=== PATIENT | male | born 1985 | race Caucasian/White ===

== ENCOUNTER 2021-08-14 23:34 | Inpatient (IN) | payer SELFPAY ==
[~2021-08-14] VITALS: Ht 172.7 cm; Wt 58.0 kg
[~2021-08-14 23:34] MED LIST: NAPROSYN500 MG OR
--- NOTE | 2021-08-14 23:35 | NUR ---
PT TO ROOM VIA EM STRETCHER FOR BEDSIDE TRIAGE
[2021-08-15 00:25] LABS: HEMATOCRIT 45.3 % (39.0-50.0); HEMOGLOBIN 15.5 g/dl (14.0-18.0); IMMATURE GRANULOCYTES 0.1 % (0.0-5.0); MEAN CELL VOLUME 87.5 fL CALC (80.0-100.0); MEAN CORPUSCULAR HGB 29.9 pG CALC (26.0-32.0); MEAN CORPUSCULAR HGB CONC 34.2 g/dL CAL (32.0-36.0); NEUT# 8.21 thou/uL (1.82-7.42); RED BLOOD COUNT 5.18 mill/uL (4.70-6.10); RED CELL DISTRI WIDTH 12.6 % (11.5-15.5)
[2021-08-15 00:31] LABS: ALBUMIN 4.8 g/dL (3.2-5.0); ALKALINE PHOSPHATASE 79 u/l (38-126); AMYLASE 88 u/l (30-110); ANION GAP 15 (6-22 (CALC)); BILIRUBIN, TOTAL 0.6 mg/dL (0.0-1.4); BUN 13 mg/dL (9-20); BUN/CREATININE RATIO 16 (12-20 (CALC)); CARBON DIOXIDE 29 mmol/l (22-30); CHLORIDE 98 mmol/l (95-108); CREATININE 0.8 mg/dL (0.7-1.3); GFR > 60 ML/MIN (>=60 (CALC)); GFR FOR AFR.AMER. > 60 ML/MIN (>=60 (CALC)); LIPASE 22 u/l (23-300); POTASSIUM 3.9 mmol/l (3.5-5.1); SGOT/AST 24 u/l (17-59); SODIUM 139 mmol/l (137-146)
[2021-08-15 00:42] LABS: MYOGLOBIN 21 ng/mL (0 - 121)
--- NOTE | 2021-08-15 02:30 | NUR ---
W/P/D SKIN NO N/V PAIN IS RESDOLVING 4 ON SCALE AT PRESENT
--- NOTE | 2021-08-15 03:42 | NUR ---
PAIN HAS RESOLVED SLEEPING AT INTERVALS NO N/V W/P/D SKIN
--- NOTE | 2021-08-15 04:20 | NUR ---
16F NG TO GASTRUM WITH 500CC BROWN WATERY ASPIRANT TO LIS.PT TOLERATED
--- NOTE | 2021-08-15 04:35 | NUR ---
PT TRANSPORTED TO OR BY OR STAFF IN STABLE CONDITION
[2021-08-15 05:45] LABS: URINE BILIRUBIN - DIPSTICK NEGATIVE (NEGATIVE); URINE BLOOD DIPSTICK NEGATIVE (NEGATIVE); URINE COLOR YELLOW; URINE GLUCOSE - DIPSTICK NEGATIVE (NEGATIVE); URINE KETONE NEGATIVE (NEGATIVE); URINE LEUK ESTERASE NEGATIVE (NEGATIVE); URINE PROTEIN - DIPSTICK NEGATIVE (NEG-TRACE); URINE UROBILINOGEN - DIPSTICK 0.2 E.U./dL (0.2)
[2021-08-15 05:47] LABS: URINE NITRITE - DIPSTICK NEGATIVE (Negative)
--- NOTE | 2021-08-15 06:55 | NUR ---
REPORT RECEIVED FROM NERY BLANCO
--- NOTE | 2021-08-15 07:20 | NUR ---
PT ARRIVED TO MED/SURG ROOM 281 IN STABLE CONDITION VIA HOSPITAL BED ACCOMPANIED BY X2 OR STAFF MEMBERS;BEDSIDE REPORT RECEIVED FROM TESS PATTERSON;PT A&O X3 BUT DROWSY, ORIENTED TO ROOM AND CALL LIGHT SYSTEM;PT POST OP EXPLORATIVE LAPAROTOMY 08/15/21;PT DENIES ANY CURRENT PAIN OR DISCOMFORTS,PAIN SCALE AND REPORTING EDUCATED;RESPIRATIONS EVEN AND UNLABORED ON RA,CLEAR LUNG SOUNDS;NGT NOTED TO BE PATENT AND CLAMPED. NO ORDERS FOR SUCTION AT THIS TIME;ABDOMEN SOFT ON PALPATION AND HYPOACTIVE IN 4 QUADRANTS,LAST BM 08/14/21;STRONG PEDAL PULSES,SCD'S IN PLACE;EMS #20G TO RFA INFUSING NS WITH EASE PER ORDER,SITE APPEARS HEALTHY;PT EDUCATED ON NPO DIET WITH ICE CHIPS AND VERBALIZES UNDERSTANDING;PT DENIES ANY ADDITIONAL NEEDS AT THIS TIME AND IS ENCOURAGED TO CALL FOR ASSISTANCE IF NEEDED;FALL PRECAUTIONS IN PLACE WITH BED IN THE LOWEST POSITION AND CALL LIGHT IN REACH;WILL CONTINUE TO MONITOR
[2021-08-15 07:30] VITALS: BP 143/88
--- NOTE | 2021-08-15 08:55 | NUR ---
PT APPEARS TO BE SLEEPING IN SUPINE POSITION;NO S/S OF DISTRESS NOTED;RESPIRATIONS EVEN AND UNLABORED ON RA;IV SITE PATENT AND ABX STARTED AT THIS TIME;CALL LIGHT IN REACH;WILL CONTINUE TO MONITOR
[2021-08-15 10:00] VITALS: BP 126/78
--- NOTE | 2021-08-15 10:35 | NUR ---
VISITOR AT BEDSIDE
--- NOTE | 2021-08-15 11:25 | NUR ---
PT RESTING IN SUPINE POSITION;PT DENIES ANY CURRENT PAIN OR DISCOMFORTS;IV SITE PATENT INFUSING WITH EASE PER ORDER;ABDOMINAL DRESSING AND BINDER INTACT;MÉNDEZ CATHETER DRAINING TO GRAVITY WITH EASE;PT ENCOURAGED TO CALL FOR ASSISTANCE IF NEEDED;FALL PRECAUTIONS IN PLACE WITH BED IN THE LOWEST POSITION AND CALL LIGHT IN REACH;WILL CONTINUE TO MONITOR
--- NOTE | 2021-08-15 15:30 | NUR ---
PT RESTING IN SEMI FOWLERS POSITION;RESPIRATIONS EVEN AND UNLABORED ON RA;PT REPORTS MINIMAL ABDOMINAL PAIN 2/10 ON THE PAIN SCALE;IV SITE PATENT INFUSING WITH EASE;NGT IN PLACE;ABDOMINAL DRESSING AND BINDER CDI;MÉNDEZ CATHETER DRAINING TO GRAVITY;ICE CHIPS PROVIDED PER REQUEST;PT ASSISTED INTO RECLINER AT THIS TIME AND TOLERATED WELL;PT DENIES ANY ADDITIONAL NEEDS AND IS ENCOURAGED TO CALL FOR ASSISTANCE IF NEEDED;CALL LIGHT IN REACH;WILL CONTINUE TO MONITOR
[2021-08-15 16:09] VITALS: BP 123/77
--- NOTE | 2021-08-15 16:25 | NUR ---
PT REPORTS ABDOMINAL PAIN RATING 5/10 ON THE PAIN SCALE AND NAUSEA, PT MEDICATED WITH PRN DILAUDID 0.5MG SLOW IVP AND ZOFRAN 4MG IVP;WILL CONTINUE TO MONITOR FOR EFFECTIVESS
--- NOTE | 2021-08-15 19:00 | NUR ---
RECEIVED REPORT FROM ED NURSE SOFIA, PATIENT RESTING IN BED, WATCHING TV, BREATHING UNLABORED CALL LIGHT AT REACH.
--- NOTE | 2021-08-15 19:40 | NUR ---
PATIENT ALERT ORIENTED ABLE TO MAKE NEEDS KNOWN, BREATHING EVEN UNLABORED, CLEAR LUNG SOUNDS, EDUCATED ON THE USE OF SPIROMETER INSPIRATORY VOLUME 500CC, PAIN ON THROAT AND ABDOMINAL INCISION /10, WILL MEDICATE, DRESSING ON ABDOMEN CLEAN AND DRY BINDER IN PLACE, IV ON RFA G20 PATENT FLUSHES WELL D5 1/2 NS @ 125CC/HR, SCD IN PLACE, CALL LIGHT IN REACH.
[2021-08-15 20:09] VITALS: BP 128/75
--- NOTE | 2021-08-16 | NUR ---
DUE TORADOL GIVEN, PATIENT DENIES PAIN, BREATHING UNLBORED WILL CONTINUE TO MONITOR.
--- NOTE | 2021-08-16 03:00 | NUR ---
CALLED DR WELLS AND GAVE ORDERS TO REMOVE NGT.
--- NOTE | 2021-08-16 03:00 | NUR ---
PATIENT WAS C/O PAIN THROAT AND EAR PAIN STATED "I NEED THIS TUBE OUT RIGHT NOW, I CANT WAIT TILL MORNING, IM PRETTY SURE THAT I GOT EAR INFECTION BECAUSE OF THE TUBE" REFUSED PAIN MEDICATION STATED THAT HE WILL PULL THE TUBE OUT.
--- NOTE | 2021-08-16 03:05 | NUR ---
PATIENT CALLED AND SAID ALREADY PULLED THE TUBE OUT, SCANT AMOUNT OF BLOOD NOTED ON LEFT NARE, WASH CLOTH PROVIDED.
[2021-08-16 04:00] VITALS: BP 118/69
--- NOTE | 2021-08-16 05:54 | NUR ---
CATHETHER REMOVED, PATIENT TOLERATED.
[2021-08-16 06:40] LABS: ANION GAP 9 (6-22 (CALC)); BUN 13 mg/dL (9-20); BUN/CREATININE RATIO 18 (12-20 (CALC)); CARBON DIOXIDE 29 mmol/l (22-30); CHLORIDE 102 mmol/l (95-108); CREATININE 0.8 mg/dL (0.7-1.3); GFR > 60 ML/MIN (>=60 (CALC)); GFR FOR AFR.AMER. > 60 ML/MIN (>=60 (CALC)); POTASSIUM 3.9 mmol/l (3.5-5.1); SODIUM 136 mmol/l (137-146)
--- NOTE | 2021-08-16 06:55 | NUR ---
REPORT RECEIVED FROM TESS TATE
[2021-08-16 07:50] VITALS: BP 118/76
--- NOTE | 2021-08-16 08:30 | NUR ---
PT RESTING IN SEMI FOWLERS POSITION,A&O X3;VS OBTAINED AND ASSESSMENT COMPLETED;PT POD #1 EXPLORATORY LAP;PT DENIES ANY CURRENT PAIN OR DISCOMFORTS,PAIN SCALE AND REPORTING EDUCATED;RESPIRATIONS EVEN AND UNLABORED ON RA,CLEAR LUNG SOUNDS;I.S. AT BEDSIDE AND ENCOURAGED USE X10 PER HOUR;ABDOMEN SOFT ON PALPATION AND HYPOACTIVE IN ALL 4 QUADRANTS;ABDOMINAL DRESSING AND BINDER CDI;STRONG PEDAL PULSES,SCD'S IN PLACE;EMS #20G TO RFA INFUSING D5 1/2 NS @ 125ML/HR,SITE APPEARS HEALTHY;PT DENIES ANY ADDITIONAL NEEDS AND IS ENCOURAGED TO CALL FOR ASSISTANCE IF NEEDED;FALL PRECAUTIONS REAMIN IN PLACE WITH BED IN THE LOWEST POSITION AND CALL LIGHT IN REACH;WILL CONTINUE TO MONITOR
--- NOTE | 2021-08-16 10:09 | NUR ---
PT AMBULATING HALLWAY WITH VISITOR AND A STEADY GAIT.
--- NOTE | 2021-08-16 11:40 | NUR ---
PT RESTING IN SEMI FOWLERS POSITION;RESPIRATIONS EVEN AND UNLABORED ON RA;PT REPORTS ABDOMINAL PAIN RATING 2/10 ON THE PAIN SCALE AND IS MEDICATED WITH SCHEDULED TORADOL 15MG IVP;ABDOMINAL BINDER AND DRESSING CDI;IV SITE PATENT INFUSING WITH EASE;PT DENIES ANY ADDITIONAL NEEDS AND IS ENCOURAGED TO CALL FOR ASSISTANCE IF NEEDED;CALL LIGHT IN REACH;WILL CONTINUE TO MONITOR
--- NOTE | 2021-08-16 14:30 | NUR ---
PT RESTING IN SEMI FOWLERS POSITION;PT BATHED SELF AND NEW LINENS PROVIDED;PT AMBULATED THE HALLWAYS WITH A STEADY GAIT;#20G TO RAC REMOVED WITH CATHETER INTACT DUE TO EXPIRATION, NEW #22G STARTED TO LFA ON 1ST ATTEMPT BY THIS WRITTER AND PT TOLERATED WELL;PT MEDICATED WITH PRN DILAUDID 1MG SLOW IVP AND ZOFRAN 4MG IVP AT THIS TIME PER REQUEST;PT ENCOURAGED TO CALL FOR ASSISTANCE IF NEEDED;CALL LIGHT IN REACH;WILL CONTINUE TO MONITOR
[2021-08-16 15:50] VITALS: BP 124/76
--- NOTE | 2021-08-16 16:10 | NUR ---
PT APPEARS TO BE SLEEPING IN SEMI FOWLERS POSITION;RESPIRATIONS EVEN AND UNLABORED ON RA;NO S/S OF DISTRESS NOTED;IV SITE PATENT INFUSING D5 1/2 NS WITH EASE;ALL SAFETY PRECAUTIONS IN PLACE WITH BED IN THE LOWEST POSITION AND CALL LIGHT IN REACH;WILL CONTINUE TO MONITOR
[2021-08-16 19:00] VITALS: BP 142/86
--- NOTE | 2021-08-16 19:21 | NUR ---
PT MEDICATED WITH PRN DILAUDID 1MG SLOW IVP FOR ABDOMNIAL PAIN RATING 6/10 ON THE PAIN SCALE.
--- NOTE | 2021-08-16 20:05 | NUR ---
PATIENT ALERT AND ORIENTED. ABLE TO MAKE NEEDS KNOWN. ASSESSMENT COMPLETE. DRESSING TO ABDOMEN APPEARS CDI. ABDOMINAL BINDER IN PLACE. PAIN CONTROL EFFECTIVE FROM PRN MEDICATION GIVEN FROM PREVIOUS NURSE. CALL LIGHT AND BELONGINGS REMAIN IN REACH.
--- NOTE | 2021-08-17 00:48 | NUR ---
RESTING IN BED. ADNINISTERED SCHEDULED TORADOL. PAIN RATE OF A 4. NO SIGNS OF DISTRESS. VERY PLEASANT. EMPTIED URINAL. 400CC YELLOW URINE NOTED. CALL LIGHT AND BELONGINGS REMAIN IN REACH.
[2021-08-17 04:00] VITALS: BP 118/70
--- NOTE | 2021-08-17 04:38 | NUR ---
PATIENT LAYING IN BED, RESTING. NO SIGNS OF PAIN OR DISTRESS NOTED AT THIS TIME. CALL LIGHT AND BELONGINGS REMAIN IN REACH. WILL CONTINUE TO MONITOR PATIENT.
--- NOTE | 2021-08-17 07:00 | NUR ---
REPORT RECEIVED FROM GENEVARN
[2021-08-17 07:30] VITALS: BP 135/87
--- NOTE | 2021-08-17 09:00 | NUR ---
PT RESTING IN SEMI FOWLERS POSITION,A&OX3;VS OBTAINED AND ASSESSMENT COMPLETED;PT POD #2 EXPLORATORY LAP;PT REPORTS ABDOMINAL PAIN RATING 4/10 ON THE PAIN SCALE AND REQUESTS PAIN MEDICATION, PT MEDICATED WITH DILAUDID 1MG SLOW IVP AND ZOFRAN 4MG IVP;RESPIRATIONS EVEN AND UNLABORED ON RA,CLEAR LUNG SOUNDS;PT RE-EDUCATED ON I.S AND DEMONSTARTED UNDERSTANDING;ABDOMEN SOFT ON PALPATION AND HYPOACTIVE IN ALL 4 QUADRANTS;ABDOMINAL DRESSING CHANGED PER ORDER, 14 RICARDO NOTED HEALTHY AND WELL APPROX;ABDOMINAL BINDER NOTED;STRONG PEDAL PULSES;#22G TO LFA INFUSING D5 1/2 NS @ 125ML/HR,SITE APPEARS HEALTHY;PT DENIES ANY ADDITIONAL NEEDS AND IS ENCOURAGED TO CALL FOR ASSISTANCE IF NEEDED;FALL PRECAUTIONS IN PLACE WITH CALL LIGHT IN REACH;WILL CONTINUE TO MONITOR
--- NOTE | 2021-08-17 11:15 | NUR ---
PT RESTING IN SUPINE POSITION;RESPIRATIONS EVEN AND UNLABORED ON RA;PT REPORTS PAIN RATING 2/10 ON THE PAIN SCALE AND IS MEDICATED WITH SCHEDULED TORADOL;ABDOMINAL DRESSING AND BINDER CDI;IV FLUIDS INFUSING WITH EASE;PT DENIES ANY ADDITIONAL NEEDS AND IS ENCOURAGED TO CALL FOR ASSISTANCE IF NEEDED;CALL LIGHT IN REACH;WILL CONTINUE TO MONITOR
--- NOTE | 2021-08-17 14:00 | NUR ---
PT ENCOURAGED TO GET OUT OF BED AND AMBULATE THE HALLWAYS OR SIT IN THE RECLINER, PT DECLINES AT THIS TIME.CALL LIGHT IN REACH;WILL CONTINUE TO MONITOR
--- NOTE | 2021-08-17 14:25 | NUR ---
AT BEDSIDE DISCUSSING POC.
--- NOTE | 2021-08-17 15:40 | NUR ---
PT RESTING IN SEMI FOWLERS POSITION;RESPIRATIONS EVEN AND UNLABORED ON RA;PT DENIES ANY CURRENT PAIN OR NEEDS;IV SITE PATENT;ALL SAFETY PRECAUTIONS REMAIN IN PLACE WITH CALL LIGHT IN REACH;WILL CONTINUE TO MONITOR
[2021-08-17 16:22] VITALS: BP 130/74
[2021-08-17 19:00] VITALS: BP 143/79
--- NOTE | 2021-08-17 19:25 | NUR ---
PT MEDICATED WITH PRN DILAUDID FOR ABDOMINAL PAIN RATING 6/10 ON THE PAIN SCALE.
--- NOTE | 2021-08-17 20:20 | NUR ---
PT RESTING IN BED, NO SIGNS OF DISTRESS NOTED, RESP EVEN AND UNLABORED. PT STATES HIS PAIN LEVEL NOW A 2/10 AFTER DILAUDID, ABD BINDER IN PLACE, PT REMOVED AND MIDLINE DRESSING TO ABD CDI, REPLACED ABD BINDER. INCENTIVE SPIROMETER AT BEDSIDE, PT DEMONSTRATED ITS USE, 1000ML VOLUME. PT C/O SORE THROAT, NOTIFIED AND LOZENGES ORDERED. ASSESSMENT COMPLETED, CALL LIGHT IN REACH,CONTINUE TO MONITOR.
--- NOTE | 2021-08-18 00:25 | NUR ---
PT MEDICATED PER MAR, REQUESTING SOMETHING FOR SLEEP, ORDER OBTAINED FROM SUPERVISOR PROPELLANT CHARGE LOADING MD, CALL LIGHT IN REACH,CONTINUE TO MONITOR.
[2021-08-18 04:20] VITALS: BP 120/72
--- NOTE | 2021-08-18 05:49 | NUR ---
PT RESTING IN BED, STILL STATES HE WAS UNABLE TO SLEEP, PT MEDICATED PER MAR, VOICES NO NEEDS OR COMPLAINTS AT THIS TIME, CALL LIGHT IN REACH,CONTINUE TO MONITOR.
--- NOTE | 2021-08-18 07:00 | NUR ---
SHIFT CHANGE REPORT, PT AWAKE ALERT AND ORIENTED LYING IN BED IN SUPINE POSITION, DENIES PAIN AT THIS TIME, ABD BINDER IN PLACE AND DRESSING IN PLACE TO MIDLINE ABD INCISION, SCANT BLOODY DRAINAGE ON DRESSING IN MIDDLE OF INCISION, DRESSING CHANGED, ALL NEEDS ADDRESSED, CALL MEZA IN REACH AND BED LOCKED IN LOWEST POSITION.
[2021-08-18 08:56] VITALS: BP 127/72
[2021-08-18] MEDS ORDERED: PERCOCET 5/321 COMBO PO (10:05)
--- NOTE | 2021-08-18 11:26 | NUR ---
Discharge instructions given. Patient verbalizes understanding of same. Discharged in stable condition via Ambulatory to Home with mother. All belongings sent with pt. PT REQUESTED TO AMBULATE OFF UNIT.
== END 2021-08-18 11:24 | disposition home or self-care (01) | DRG 357 ==
LOC: ED 23:34 → ED-I 08-15 02:05 → ED 08-15 02:27 → MS2 08-15 02:28
PROVIDERS: Emergency Medicine; ADMIT Surgery; ATTEND Surgery
PROC: 0DBV0ZX Excision of Mesentery, Open Approach, Diagnostic (ICD-10-PCS; principal; 2021-08-15)
DX: K56.609 Unspecified intestinal obstruction, unspecified as to partial versus complete obstruction (principal); K65.4 Sclerosing mesenteritis; K63.89 Other specified diseases of intestine; Z20.822 Contact with and (suspected) exposure to COVID-19
CPT/HCPCS: J0131; J1650; Q9967; S0164